=== PATIENT | female | born 1970 | race Caucasian/White ===

== ENCOUNTER 2017-11-06 10:19 | Outpatient (CLI) | payer SELFPAY ==
[2017-11-06] MEDS ORDERED: Gadobenate Dimeglumine 529 MG/1 ML (20ML VIAL) ONE (11:38)
== END 2017-11-06 10:20 | disposition home or self-care (01) ==
LOC: BICMRI 10:19
PROVIDERS: ATTEND Psychiatry & Neurology Neurology
DX: G35 Multiple sclerosis (principal); R90.89 Other abnormal findings on diagnostic imaging of central nervous system
CPT/HCPCS: 70553; A9579

== ENCOUNTER 2018-07-17 10:26 | Observation (INO) | payer OTHER ==
[2018-07-17] MEDS ORDERED: Morphine 4 MG/ML VIAL ONE (10:45)
[2018-07-17 10:48] LABS: #Basophils 0.1 thou/uL (0.0-0.2); #Eosinphils 0.3 thou/uL (0.0-0.7); #Lymphocytes 4.3 thou/uL (1.20-3.40); #Monocytes 0.6 thou/uL (0.11-0.59); #Neutrophils 5.7 thou/uL (1.40-6.50); %Basophils 1.2 % (0.0-1.0); %Eosinophils 3.1 % (0.0-10.0); %Lymphocytes 39.1 % (21.0-51.0); %Monocytes 5.1 % (0.0-10.0); %Neutrophils 51.5 % (42.0-75.0); Hemoglobin 12.9 g/dL (12.0-16.0); Mean Corpuscular HGB CONC 32.3 g/dL (32.0-36.0); Mean Corpuscular Hemoglobin 31.7 pg (27.0-31.0); Platelet Count 233 thou/uL (130-400); RBC Distribution Width 12.3 % (11.5-14.5); Red Blood Cell (RBC) Count 4.08 mill/uL (4.20-5.40)
[2018-07-17 10:54] LABS: PTT 27.1 SEC (22.9-36.1)
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
[2018-07-17 11:17] LABS: Anion Gap 11 mmol/L (10-20); BUN (Urea Nitrogen) 16 mg/dL (7.0-18.7); Calc. Creatinine Clearance 0 mL/min (70-130); Carbon Dioxide 28 mmol/L (22-29); Chloride 105 mmol/L (98-107); Estimated GFR-MDRD 74; Glucose 102 mg/dL (70-105); Potassium 4.1 mmol/L (3.5-5.1); Sodium 140 mmol/L (136-145)
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
[2018-07-17] MEDS ORDERED: Adacel (T-DAP) 0.5 ML SYRINGE ONE (11:42)
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
[2018-07-17] MEDS ORDERED: hydrALAZINE 20 MG/ML VIAL SLOW IVP PRN (14:46)
[2018-07-17] MEDS ORDERED: Promethazine HCl 25 MG/ML VIAL IM PRN ×2 (14:46)
[2018-07-17] MEDS ORDERED: Sodium Chloride 0.9% 1,000 ML IV SCH (14:46)
[2018-07-17] MEDS ORDERED: Dextrose 50% Abboject 50 ML SYRINGE SLOW IVP PRN (14:46)
[2018-07-17] MEDS ORDERED: HYDROcodone/Acetaminophen 5/325 mg Tablet PO PRN (14:46)
[2018-07-17] MEDS ORDERED: Dextrose 5% in Water 1,000 ML IV PRN (14:46)
[2018-07-17] MEDS ORDERED: Ondansetron ODT 4 MG TAB PO PRN (14:46)
[2018-07-17] MEDS ORDERED: Cyclobenzaprine 10 MG TAB PO PRN (14:46)
[2018-07-17] MEDS ORDERED: Ondansetron PF 4 MG/2 ML Vial IVP PRN (14:46)
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
[2018-07-17 15:02] VITALS: BMI 23.2
[2018-07-17] MEDS ORDERED: Iopamidol 370 76% 100 ML VIAL ONE (15:15)
[2018-07-17] MEDS: traMADol HCl 50 MG TAB PO PRN ×2 (16:48→22:23)
[2018-07-17] MEDS: Acetaminophen 500 MG TAB PO SCH (18:21)
[2018-07-17] MEDS: Famotidine 20 MG TAB PO SCH (20:11)
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
[2018-07-17] MEDS: Ibuprofen 800 MG TAB PO SCH (22:22)
[2018-07-18] MEDS: Acetaminophen 500 MG TAB PO SCH ×4 (00:40→18:31)
[2018-07-18 05:06] LABS: #Eosinphils 0.1 thou/uL (0.0-0.7); #Lymphocytes 1.8 thou/uL (1.20-3.40); #Monocytes 0.4 thou/uL (0.11-0.59); #Neutrophils 3.4 thou/uL (1.40-6.50); %Basophils 0.3 % (0.0-1.0); %Eosinophils 2.4 % (0.0-10.0); %Lymphocytes 30.5 % (21.0-51.0); %Monocytes 7.5 % (0.0-10.0); %Neutrophils 59.4 % (42.0-75.0); Mean Corpuscular HGB CONC 32.6 g/dL (32.0-36.0); Mean Corpuscular Volume 98.2 fL (78.0-98.0); Mean Platelet Volume 7.9 fL (7.4-10.4); Platelet Count 134 thou/uL (130-400); RBC Distribution Width 12.2 % (11.5-14.5); Red Blood Cell (RBC) Count 3.12 mill/uL (4.20-5.40); White Blood Cell (WBC) Count 5.7 thou/uL (4.8-10.8)
[2018-07-18 05:21] LABS: Anion Gap 9 mmol/L (10-20); BUN (Urea Nitrogen) 15 mg/dL (7.0-18.7); Calc. Creatinine Clearance 81 mL/min (70-130); Calcium 7.8 mg/dL (7.8-10.44); Carbon Dioxide 25 mmol/L (22-29); Chloride 107 mmol/L (98-107); Estimated GFR-MDRD 87; Glucose 98 mg/dL (70-105); Potassium 3.5 mmol/L (3.5-5.1); Sodium 137 mmol/L (136-145)
[2018-07-18] MEDS: Ibuprofen 800 MG TAB PO SCH ×3 (06:17→21:49)
[2018-07-18] MEDS: Famotidine 20 MG TAB PO SCH ×2 (08:46→21:49)
[2018-07-18] MEDS: traMADol HCl 50 MG TAB PO PRN ×2 (08:47→18:38)
[2018-07-18] MEDS ORDERED: Loratadine 10 MG TAB PO PRN (11:28)
[2018-07-18] MEDS ORDERED: Oxymetazoline HCl 0.05% ( 15 ML ) NASAL PRN (11:28)
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
[2018-07-18] MEDS ORDERED: Polyethylene Glycol 3350 17 GM Packet PO SCH (19:30)
[2018-07-18] MEDS: Senokot S 8.6-50 MG TAB PO SCH (21:49)
[2018-07-18] MEDS: Zolpidem Tartrate 5 MG TAB PO SCH (21:49)
[2018-07-19] MEDS: Acetaminophen 500 MG TAB PO SCH ×4 (00:44→18:40)
[2018-07-19] MEDS: Ibuprofen 800 MG TAB PO SCH ×2 (06:20→14:49)
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
[2018-07-19 08:54] LABS: #Eosinphils 0.3 thou/uL (0.0-0.7); #Lymphocytes 1.4 thou/uL (1.20-3.40); #Monocytes 0.5 thou/uL (0.11-0.59); #Neutrophils 3.8 thou/uL (1.40-6.50); %Basophils 0.7 % (0.0-1.0); %Eosinophils 5.3 % (0.0-10.0); %Lymphocytes 23.5 % (21.0-51.0); %Monocytes 7.8 % (0.0-10.0); %Neutrophils 62.7 % (42.0-75.0); Hemoglobin 10.2 g/dL (12.0-16.0); Mean Corpuscular HGB CONC 31.2 g/dL (32.0-36.0); Mean Corpuscular Hemoglobin 30.7 pg (27.0-31.0); Mean Corpuscular Volume 98.5 fL (78.0-98.0); Mean Platelet Volume 7.8 fL (7.4-10.4); Platelet Count 140 thou/uL (130-400); RBC Distribution Width 12.2 % (11.5-14.5); Red Blood Cell (RBC) Count 3.31 mill/uL (4.20-5.40)
[2018-07-19] MEDS: Polyethylene Glycol 3350 17 GM Packet PO SCH (09:02)
[2018-07-19] MEDS: Aripiprazole 10 MG TAB PO SCH (09:02)
[2018-07-19] MEDS: Famotidine 20 MG TAB PO SCH ×2 (09:03→21:42)
[2018-07-19] MEDS: PARoxetine 20 MG TAB PO SCH (09:03)
[2018-07-19] MEDS: Senokot S 8.6-50 MG TAB PO SCH ×2 (09:03→21:40)
[2018-07-19] MEDS: traMADol HCl 50 MG TAB PO PRN ×2 (09:12→18:38)
[2018-07-19] MEDS: Aspirin 81 mg Enteric Coated Tablet PO SCH ×2 (09:14→21:42)
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
[2018-07-19] MEDS: Zolpidem Tartrate 5 MG TAB PO SCH (21:40)
[2018-07-19] MEDS: Ibuprofen 600 MG TAB PO SCH (21:42)
[2018-07-20] MEDS: Acetaminophen 500 MG TAB PO SCH ×4 (00:44→15:53)
[2018-07-20] MEDS: traMADol HCl 50 MG TAB PO PRN ×3 (00:45→15:54)
[2018-07-20 05:16] LABS: #Eosinphils 0.4 thou/uL (0.0-0.7); #Lymphocytes 1.9 thou/uL (1.20-3.40); #Monocytes 0.4 thou/uL (0.11-0.59); #Neutrophils 2.5 thou/uL (1.40-6.50); %Basophils 0.9 % (0.0-1.0); %Eosinophils 6.8 % (0.0-10.0); %Lymphocytes 35.8 % (21.0-51.0); %Monocytes 8.5 % (0.0-10.0); %Neutrophils 48.1 % (42.0-75.0); Hemoglobin 9.6 g/dL (12.0-16.0); Mean Corpuscular HGB CONC 32.5 g/dL (32.0-36.0); Mean Corpuscular Volume 98.2 fL (78.0-98.0); Mean Platelet Volume 7.4 fL (7.4-10.4); Platelet Count 137 thou/uL (130-400); RBC Distribution Width 12.2 % (11.5-14.5); White Blood Cell (WBC) Count 5.2 thou/uL (4.8-10.8)
[2018-07-20] MEDS: Ibuprofen 600 MG TAB PO SCH ×3 (06:55→21:21)
[2018-07-20] MEDS: Senokot S 8.6-50 MG TAB PO SCH ×2 (08:51→21:21)
[2018-07-20] MEDS: Aspirin 81 mg Enteric Coated Tablet PO SCH ×2 (08:51→21:20)
[2018-07-20] MEDS: Famotidine 20 MG TAB PO SCH ×2 (08:52→21:20)
[2018-07-20] MEDS: Aripiprazole 10 MG TAB PO SCH (08:52)
[2018-07-20] MEDS: PARoxetine 20 MG TAB PO SCH (08:52)
[2018-07-20] MEDS: Polyethylene Glycol 3350 17 GM Packet PO SCH (08:54)
[2018-07-20] MEDS: traMADol HCl 50 MG TAB PO SCH (15:52)
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
[2018-07-20] MEDS: Zolpidem Tartrate 5 MG TAB PO SCH (21:21)
[2018-07-21] MEDS: Acetaminophen 500 MG TAB PO SCH ×3 (00:21→12:07)
[2018-07-21] MEDS: traMADol HCl 50 MG TAB PO SCH ×2 (00:21→06:51)
[2018-07-21] MEDS: traMADol HCl 50 MG TAB PO PRN ×2 (00:22→06:52)
[2018-07-21] MEDS: Ibuprofen 600 MG TAB PO SCH (06:51)
[2018-07-21] MEDS: PARoxetine 20 MG TAB PO SCH (09:20)
[2018-07-21] MEDS: Aripiprazole 10 MG TAB PO SCH (09:21)
[2018-07-21] MEDS: Aspirin 81 mg Enteric Coated Tablet PO SCH (09:21)
[2018-07-21] MEDS: Famotidine 20 MG TAB PO SCH (09:22)
[2018-07-21] MEDS: Senokot S 8.6-50 MG TAB PO SCH (09:22)
[2018-07-21] MEDS: Polyethylene Glycol 3350 17 GM Packet PO SCH (09:23)
[2018-07-21] MEDS ORDERED: traMADol HCl 50 MG TAB PO SCH ×2 (10:30→12:00)
[2018-07-21] MEDS ORDERED: NATALIZUMAB 300 MG IV SCH (11:15)
[2018-07-21 12:06] VITALS: BP 112/76; TEMP 98.3
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
[2018-07-21] MEDS ORDERED: Gabapentin 100 MG CAP PO SCH (15:00)
== END 2018-07-21 13:41 ==
LOC: ERS 10:26 → SURG B 14:37
PROVIDERS: ADMIT Orthopaedic Surgery; ATTEND Surgery
DX: S32.512A Fracture of superior rim of left pubis, initial encounter for closed fracture (principal); S32.511A Fracture of superior rim of right pubis, initial encounter for closed fracture; G35 Multiple sclerosis; Z79.891 Long term (current) use of opiate analgesic; Z79.899 Other long term (current) drug therapy; Z98.890 Other specified postprocedural states; V89.2XXA Person injured in unspecified motor-vehicle accident, traffic, initial encounter
CPT/HCPCS: 36415; 70450; 71045; 72125; 72170; 74177; 80048; 85025; 85610; 85730; 90471; 90715; 96361; 96374; G0378; G0390; J2270; Q9967

== ENCOUNTER 2021-01-12 12:08 | Inpatient (IN) | payer BC, OTHER ==
[2021-01-12 14:59] VITALS: BMI 24.4
[2021-01-12] MEDS ORDERED: Acetaminophen 325 MG TAB PO PRN (16:14)
[2021-01-12] MEDS ORDERED: Ondansetron PF 4 MG/2 ML Vial IVP PRN (16:14)
[2021-01-12] MEDS: Sodium Chloride 0.9% 1,000 ML IV SCH (17:26)
[2021-01-12 17:32] LABS: ALT (SGPT) 17 U/L (8-55); AST (SGOT) 26 U/L (5-34); Albumin 3.2 g/dL (3.5-5.0); Alkaline Phosphatase 44 U/L (40-110); Anion Gap 11 mmol/L (10-20); BUN (Urea Nitrogen) 11 mg/dL (9.8-20.1); Bilirubin, Total 0.2 mg/dL (0.2-1.2); Calc. Creatinine Clearance 81 mL/min (70-130); Calcium 8.2 mg/dL (7.8-10.44); Carbon Dioxide 29 mmol/L (22-29); Chloride 104 mmol/L (98-107); Globulin 2.5 g/dL (2.4-3.5); Glucose 150 mg/dL (70-105); Potassium 3.9 mmol/L (3.5-5.1); Protein, Total 5.7 g/dL (6.0-8.3); Sodium 140 mmol/L (136-145)
[2021-01-12] MEDS: Famotidine 20 MG TAB PO SCH (20:18)
[2021-01-13] MEDS: Sodium Chloride 0.9% 1,000 ML IV SCH ×2 (04:23→18:21)
[2021-01-13] MEDS ORDERED: Oxymetazoline HCl 0.05% (30 ML BOT) NS PRN (07:38)
[2021-01-13] MEDS ORDERED: Loratadine 10 MG TAB PO PRN (07:38)
[2021-01-13] MEDS: Dexamethasone 10 MG/ML VIAL SLOW IVP SCH (08:12)
[2021-01-13] MEDS: Aripiprazole 10 MG TAB PO SCH (08:12)
[2021-01-13] MEDS: Enoxaparin Sodium 40 MG/0.4 ML SYRINGE SC SCH (08:12)
[2021-01-13] MEDS: PARoxetine 20 MG TAB PO SCH (08:13)
[2021-01-13] MEDS: Zinc Sulfate 220 MG CAP PO SCH (08:13)
[2021-01-13] MEDS: Famotidine 20 MG TAB PO SCH ×2 (08:13→19:52)
[2021-01-13] MEDS: Ascorbic Acid 500 mg Chewable Tablet PO SCH (08:13)
[2021-01-13] MEDS: Cholecalciferol (Vitamin D3) 400 UNITS TAB PO SCH (08:13)
[2021-01-13] MEDS ORDERED: Dexamethasone 10 MG in Sodium Chloride 0.9% 50 ML IVPB SCH (09:00)
[2021-01-13] MEDS: Zolpidem Tartrate 5 MG TAB PO PRN (19:58)
[2021-01-14] MEDS: Sodium Chloride 0.9% 1,000 ML IV SCH (05:08)
[2021-01-14 07:31] LABS: Hemoglobin 11.9 g/dL (12.0-16.0); Platelet Count 194 thou/uL (130-400)
[2021-01-14 07:55] LABS: ALT (SGPT) 15 U/L (8-55); AST (SGOT) 25 U/L (5-34); Albumin 2.6 g/dL (3.5-5.0); Alkaline Phosphatase 38 U/L (40-110); Anion Gap 12 mmol/L (10-20); BUN (Urea Nitrogen) 14 mg/dL (9.8-20.1); Bilirubin, Total Less than 0.2 mg/dL (0.2-1.2); CRP (Inflammatory) 3.31 mg/dL (= or < 0.5); Calc. Creatinine Clearance 88 mL/min (70-130); Carbon Dioxide 24 mmol/L (22-29); Chloride 112 mmol/L (98-107); Globulin 2.4 g/dL (2.4-3.5); Glucose 120 mg/dL (70-105); Potassium 4.9 mmol/L (3.5-5.1); Sodium 143 mmol/L (136-145)
[2021-01-14] MEDS: Famotidine 20 MG TAB PO SCH ×2 (09:50→19:26)
[2021-01-14] MEDS: Zinc Sulfate 220 MG CAP PO SCH (09:50)
[2021-01-14] MEDS: Aripiprazole 10 MG TAB PO SCH (09:50)
[2021-01-14] MEDS: Cholecalciferol (Vitamin D3) 400 UNITS TAB PO SCH (09:50)
[2021-01-14] MEDS: Dexamethasone 10 MG/ML VIAL SLOW IVP SCH (09:51)
[2021-01-14] MEDS: PARoxetine 20 MG TAB PO SCH (09:51)
[2021-01-14] MEDS: Ascorbic Acid 500 mg Chewable Tablet PO SCH (09:51)
[2021-01-14] MEDS: Enoxaparin Sodium 40 MG/0.4 ML SYRINGE SC SCH (09:51)
[2021-01-14 19:20] VITALS: TEMP 98.6
[2021-01-14] MEDS: Zolpidem Tartrate 5 MG TAB PO PRN (19:26)
[2021-01-15] MEDS: Cholecalciferol (Vitamin D3) 400 UNITS TAB PO SCH (07:46)
[2021-01-15] MEDS: Aripiprazole 10 MG TAB PO SCH (07:46)
[2021-01-15] MEDS: Zinc Sulfate 220 MG CAP PO SCH (07:47)
[2021-01-15] MEDS: Famotidine 20 MG TAB PO SCH (07:47)
[2021-01-15] MEDS: PARoxetine 20 MG TAB PO SCH (07:47)
[2021-01-15] MEDS: Dexamethasone 10 MG/ML VIAL SLOW IVP SCH (07:47)
[2021-01-15] MEDS: Ascorbic Acid 500 mg Chewable Tablet PO SCH (07:48)
[2021-01-15] MEDS: Enoxaparin Sodium 40 MG/0.4 ML SYRINGE SC SCH (07:49)
[2021-01-15 08:12] LABS: #Lymphocytes 0.8 thou/uL (1.20-3.40); #Monocytes 0.5 thou/uL (0.11-0.59); #Neutrophils 6.1 thou/uL (1.40-6.50); %Basophils 0.1 % (0.0-1.0); %Lymphocytes 10.8 % (21.0-51.0); %Monocytes 6.7 % (0.0-10.0); %Neutrophils 82.3 % (42.0-75.0); Hemoglobin 12.4 g/dL (12.0-16.0); Mean Corpuscular HGB CONC 33.4 g/dL (32.0-36.0); Mean Corpuscular Hemoglobin 31.9 pg (27.0-31.0); Mean Corpuscular Volume 95.4 fL (78.0-98.0); Mean Platelet Volume 8.5 fL (7.4-10.4); Platelet Count 238 thou/uL (130-400); RBC Distribution Width 11.9 % (11.5-14.5); Red Blood Cell (RBC) Count 3.88 mill/uL (4.20-5.40); White Blood Cell (WBC) Count 7.4 thou/uL (4.8-10.8)
[2021-01-15 08:31] VITALS: BP 132/76
[2021-01-15 08:38] LABS: Anion Gap 8 mmol/L (10-20); BUN (Urea Nitrogen) 17 mg/dL (9.8-20.1); Calc. Creatinine Clearance 79 mL/min (70-130); Calcium 8.2 mg/dL (7.8-10.44); Carbon Dioxide 29 mmol/L (22-29); Chloride 110 mmol/L (98-107); Glucose 108 mg/dL (70-105); Potassium 4.3 mmol/L (3.5-5.1); Sodium 143 mmol/L (136-145)
[2021-01-15] MEDS ORDERED: FLU VACC QS2021-22(6MOS UP)/PF 60 MCG/0.5 ML SYRINGE IM ONE (18:15)
== END 2021-01-15 16:05 | disposition home or self-care (01) | DRG 177 ==
LOC: T4-A 12:08 → INTOOBSV 12:08 → OBSVTOIN 01-14 16:00
PROVIDERS: ADMIT Internal Medicine; ATTEND Internal Medicine
PROC: 8E0ZXY6 Isolation (ICD-10-PCS; principal; 2021-01-14)
DX: U07.1 COVID-19 (principal); J12.82 Pneumonia due to coronavirus disease 2019; J96.01 Acute respiratory failure with hypoxia; G35 Multiple sclerosis
CPT/HCPCS: 36415; 80048; 80053; 82728; 85014; 85018; 85025; 85049; 85379; 86140; 96372; 96374; 96376; G0378; J1100; J1650; J7050

== ENCOUNTER 2023-12-30 17:06 | Emergency (ER) | payer OTHER, BC ==
[2023-12-30 17:21] LABS: #Basophils 0.04 10x3/uL (0.0-0.2); %Basophils 0.5 % (0.0-1.0); %Lymphocytes 27.4 % (21.0-51.0); %Neutrophils 60.7 % (42.0-75.0); Hematocrit 38.8 % (36.0-47.0); Hemoglobin 12.8 g/dL (12.0-16.0); Mean Corpuscular Hemoglobin 30.5 pg (27.0-31.0); Mean Corpuscular Volume 92.6 fL (78.0-98.0); Mean Platelet Volume 10.6 fL (7.4-10.4); Platelet Count 276 10x3/uL (130-400); RBC Distribution Width 12.6 % (11.5-14.5); Red Blood Cell (RBC) Count 4.19 mill/uL (4.20-5.40)
[2023-12-30 17:35] LABS: ALT (SGPT) 13 U/L (8-55); AST (SGOT) 16 U/L (5-34); Albumin 3.8 g/dL (3.5-5.0); Alkaline Phosphatase 75 U/L (40-110); Anion Gap 13 mmol/L (10-20); BUN (Urea Nitrogen) 18 mg/dL (9.8-20.1); Bilirubin, Total 0.2 mg/dL (0.2-1.2); Calc. Creatinine Clearance 0 mL/min (70-130); Calcium 9.1 mg/dL (7.8-10.44); Carbon Dioxide 23 mmol/L (22-29); Chloride 106 mmol/L (98-107); Estimated GFR 81; Glucose 96 mg/dL (70-105); Potassium 4.4 mmol/L (3.5-5.1); Protein, Total 6.8 g/dL (6.0-8.3); Sodium 138 mmol/L (136-145)
[2023-12-30 17:40] LABS: INR-International Normal Ratio 0.9; PTT 27.3 sec (22.9-36.1); Prothrombin Time 12.2 sec (12.0-14.7)
== END 2023-12-30 18:38 | disposition home or self-care (01) ==
LOC: ERS 17:06
DX: S09.90XA Unspecified injury of head, initial encounter (principal); S90.512A Abrasion, left ankle, initial encounter; W18.09XA Striking against other object with subsequent fall, initial encounter; Y93.01 Activity, walking, marching and hiking; Y92.59 Other trade areas as the place of occurrence of the external cause
CPT/HCPCS: 70450; 71045; 72125; 80053; 83690; 85025; 85610; 85730; 93005; 94760; G0390